=== PATIENT | female | born 2000 | race African-American/Black ===

== ENCOUNTER 2020-11-14 23:50 | Emergency (ER) | payer OTHER ==
[~2020-11-14] VITALS: Ht 154.9 cm; Wt 47.3 kg
[2020-11-15 00:21] LABS: U PREG PATIENT NEGATIVE (NEG)
--- NOTE | 2020-11-15 00:37 | PHYS DOC ---
Past Medical History Past Medical History: No Pertinent History Past Surgical History: No Surgical History Smoking Status: Current Some Day Smoker Alcohol Use: None Adult General Chief Complaint Chief Complaint: TEST [facility] HPI Patient is a 20 year old female who denies any significant past medical history presenting the emergency department due to concern for lower abdominal pain and abnormal vaginal bleeding. Patient states that she had unprotected sexual intercourse with her boyfriend approximately 3 weeks ago. Patient states that shortly after that she noted new onset of abdominal cramping with abnormal vaginal spotting. States that continued for approximately 1 week has been persistent off and on since that time. Since that time she is also noted moderate nausea, constipation and backaches. Also some mild dysuria. However recently she is noted an abnormal white and pink vaginal discharge. Denies any new or different sexual partners. Has been taking multiple home tests and concerned that she might be and these have all been negative Review of Systems Review of Systems Constitutional: Denies fever or chills [] Eyes: Denies change in visual acuity, redness, or eye pain [] HENT: Denies nasal congestion or sore throat [] Respiratory: Denies cough or shortness of breath [] Cardiovascular: No additional information not addressed in HPI [] GI: Denies abdominal pain, nausea, vomiting, bloody stools or diarrhea [] : Denies dysuria or hematuria [] Musculoskeletal: Denies back pain or joint pain [] Integument: Denies rash or skin lesions [] Neurologic: Denies headache, focal weakness or sensory changes [] Endocrine: Denies polyuria or polydipsia [] All other systems were reviewed and found to be within normal limits, except as documented in this note. Current Medications Current Medications Current Medications Medications (Trade) Dose Ordered Sig/[facility] Start Time Stop Time Status Last Admin Dose Admin Metronidazole (Flagyl) 2,000 mg 1X ONCE 11/15/20 03:00 11/15/20 03:01 DC 11/15/20 03:06 2,000 MG Allergies Allergies Allergies Coded Allergies Type Severity Reaction Last Updated Verified No Known Drug Allergies 11/15/20 No Physical Exam Physical Exam Constitutional: Well developed, well nourished, no acute distress, non-toxic appearance. [] HENT: Normocephalic, atraumatic, bilateral external ears normal, oropharynx moist, no oral exudates, nose normal. [] Eyes: PERRLA, EOMI, conjunctiva normal, no discharge. [] Neck: Normal range of motion, no tenderness, supple, no stridor. [] Cardiovascular:Heart rate regular rhythm, no murmur [] Lungs & Thorax: Bilateral breath sounds clear to auscultation [] Abdomen: Bowel sounds normal, soft, no tenderness, no masses, no pulsatile masses. [] Skin: Warm, dry, no erythema, no rash. [] Back: No tenderness, no CVA tenderness. [] Extremities: No tenderness, no cyanosis, no clubbing, ROM intact, no edema. [] Neurologic: Alert and oriented X 3, normal motor function, normal sensory function, no focal deficits noted. [] Psychologic: Affect normal, judgement normal, mood normal. [] Current Patient Data Vital Signs Vital Signs Date Time Temp Pulse Resp B/P (MAP) Pulse Ox O2 Delivery O2 Flow Rate FiO2 11/15/20 00:02 97.7 90 13 142/89 (106) 100 Room Air 97.7 Lab Values Laboratory Tests Test 11/15/20 00:10 11/15/20 00:12 Urine Collection Type Unknown Urine Color Yellow Urine Clarity Clear Urine pH 6.5 (<5.0-8.0) Urine Specific [place] 1.020 (1.000-1.030) Urine Protein Negative mg/dL (NEG-TRACE) Urine Glucose (UA) Negative mg/dL (NEG) Urine Ketones (Stick) Negative mg/dL (NEG) Urine Blood Negative (NEG) Urine Nitrite Negative (NEG) Urine Bilirubin Negative (NEG) Urine Urobilinogen Dipstick 0.2 mg/dL (0.2 mg/dL) Urine Leukocyte Esterase Large (NEG) Urine RBC 0 /HPF (0-2) Urine WBC 20-40 /HPF (0-4) Urine Squamous Epithelial Cells Many /LPF Urine Bacteria Few /HPF (0-FEW) Urine Mucus Marked /LPF Urine Trichomonas Present Urine Test Negative (NEG) POC Urine HCG, Qualitative Hcg negative (Negative) Microbiology 11/15/20 Wet Prep - Final, Complete EKG EKG [] Radiology/Procedures Radiology/Procedures [] Course & Med Decision Making Course & Med Decision Making Pertinent Labs and Imaging studies reviewed. (See chart for details) 20-year-old female presenting with new onset of abnormal vaginal bleeding, suprapubic pain and abnormal vaginal discharge which at this time raises concern for urinary tract infection or sexually transmitted infection. Initial urine test was negative. Will obtain GC CT, urinalysis and an x-ray of the abdomen to ensure there is no signfiicant intra abdominal infection. Workup does show mild constipation as well as trichomonal cervical infection and BV. Patient treated with metronidazole. I counseled the patient and her boyfriend on safe sexual practices and will prescribe the patient a dose of metronidazole for her boyfriend to take her treatment for presumed trichomonas. I spoken with the patient and her caregivers. I explained the patient's condition, diagnoses and treatment plan based on the information available to me at this time. I have answered the patient and her caregiver's questions and addressed any concerns. The patient and her caregivers have a good understanding of patient's diagnosis, condition and treatment plan as can be expected at this point. Vital signs have been stable. Patient's condition is stable and appropriate for discharge from the emergency department. Patient will pursue further outpatient evaluation with primary care physician or other designated or consulting physician as outlined in the discharge instructions. The patient and/or caregivers are agreeable to this plan of care and follow-up instructions have been explained in detail. The patient and/or caregivers have received these instructions in written form and have expressed an understanding of the discharge instructions. The patient and/or caregivers are aware that any significant change of condition or worsening of symptoms should prompt immediate return to this or the closest emergency department or call to 911. Leydi Disclaimer Leydi Disclaimer This electronic medical record was generated, in whole or in part, using a voice recognition dictation system. Departure Departure Impression: Primary Impression: Bacterial vaginosis Additional Impression: Trichomonas vaginalis (TV) infection Disposition: 01 DC HOME SELF CARE/HOMELESS Condition: GOOD Patient Instructions: Bacterial Vaginosis Additional Instructions: EMERGENCY DEPARTMENT GENERAL DISCHARGE INSTRUCTIONS Thank you for coming to [facility] Emergency Department (ED) today and trusting us with you care. We trust that you had a positive experience in our Emergency Department. If you wish to speak to the department management, you may call the Director at [phone]. YOUR FOLLOW UP INSTRUCTIONS ARE FOLLOWS: 1. Do you have a private Doctor? If you do not have a private doctor, please ask for a resource list of physicians or clinics that may be able to assist you with follow up care. 2. The Emergency Physicain has interpreted your x-rays. The X-Ray specialist will also review them. If there is a change in the findings, you will be notified in 48 hours when at all possible. 3. A lab test or culture has been done, your results will be reviewed and you will be notified if you need a change in treatment. ADDITIONAL INSTRUCTIONS AND INFORMATION: 1. Your care today has been supervised by a physician who is specially trained in emergency care. Many problems require more than one evaluation for a complete diagnosis and treatment. We recommend that you schedule your follow up appointment as recommended to ensure complete treatment of you illness or injury. If you are unable to obtain follow up care and continue to have a problem, or if your condition worsens, we recommend that you return to the ED. 2. We are not able to safely determine your condition over the phone nor are we able to give sound medical advice over the phone. For these safety reasons, if you call for medical advice we will ask you to come to the ED for further evaluation. 3. If you have any questions regarding these discharge instructions please call the ED at [phone]. SAFETY INFORMATION: In the interest of safety, wellness, and injury prevention; we encourage you to wear your sealbelt, if you smoke; quite smoking, and we encourage family to use a protective helmet for bicycling and other sporting events that present an increased risk for head injury. IF YOUR SYMPTOMS WORSEN OR NEW SYMPTOMS DEVELOP, OR YOU HAVE CONCERNS ABOUT YOUR CONDITION; OR IF YOUR CONDITION WORSENS WHILE YOU ARE WAITING FOR YOUR FOLLOW UP APPOINTMENT; EITHER CONTACT YOUR PRIMARY CARE DOCTOR, THE PHYSICIAN WHOSE NAME AND NUMBER YOU WERE GIVEN, OR RETURN TO THE ED IMMEDIATELY. Scripts Metronidazole (FLAGYL) 500 Mg Tablet 2000 MG PO ONCE for 1 Day, #1 TAB Prov: SHAWNEE MATHIAS MD 11/15/20 Problem Qualifiers SHAWNEE MATHIAS MD Nov 15, 2020 00:37
[2020-11-15 00:43] LABS: BILIRUBIN,URINE NEGATIVE (NEG); CLARITY,URINE CLEAR; COLOR,URINE YELLOW; NITRITE,URINE NEGATIVE (NEG); PH,URINE 6.5 (<5.0-8.0); PROTEIN,URINE NEGATIVE (NEG-TRACE); UROBILINOGEN,URINE 0.2 mg/dL (0.2 mg/dL)
[2020-11-15 00:52] LABS: BACTERIA,URINE FEW /HPF (0-FEW); RBC,URINE 0 /HPF (0-2); TRICHOMONAS,URINE PRESENT; WBC,URINE 20-40 /HPF (0-4)
--- NOTE | 2020-11-15 01:06 | RAD ---
ABDOMEN AP supine Clinical Indication: Reason: abd pain / Comparison: None. Findings: No dilated loops of small bowel are seen. The bowel gas pattern is nonobstructive. There is scattered stool and air in the colon. There is no obvious organomegaly. There is no radiopaque foreign body or calculus. There is no acute bony abnormality. IMPRESSION: Nonobstructive bowel gas pattern. Electronically signed by: Wyatt Padilla MD (11/15/2020 1:03 AM) [facility]
[2020-11-15] MEDS ORDERED: metroNIDAZOLE 500 MG TABLET PO ONE (03:00)
[2020-11-15 03:35] VITALS: BP 126/82
[2020-11-15] MEDS ORDERED: METR500T PO (03:37)
[2020-11-16 19:12] LABS: GC PROBE Negative (Negative)
== END 2020-11-15 03:40 | disposition home or self-care (01) ==
LOC: ER 23:50
DX: N76.0 Acute vaginitis (principal); B96.89 Other specified bacterial agents as the cause of diseases classified elsewhere; A59.01 Trichomonal vulvovaginitis; R10.30 Lower abdominal pain, unspecified; R30.0 Dysuria; F17.200 Nicotine dependence, unspecified, uncomplicated
CPT/HCPCS: 74018; 81001; 81025; 87491; 87591; 99284; Q0111